=== PATIENT | male | born 1975 | race Caucasian/White ===

== ENCOUNTER 2024-01-29 04:44 | Emergency (ER) | payer OTHER, SELFPAY ==
[2024-01-29 04:52] VITALS: BP 168/118; PULSE 103; RESP 20; TEMP 37.2; O2SAT 97
--- NOTE | 2024-01-29 05:20 | CRLHL7_ITS ---
For Patients: As a result of the Century Cures Act, medical imaging exams and procedure reports are released immediately into your electronic medical record. You may view this report before your referring provider. If you have questions, please contact your health care provider. INDICATION: Lower abdominal pain. History of diverticulitis. COMPARISON: September 09, 2020 TECHNIQUE: CT examination of the abdomen and pelvis was performed following the uneventful intravenous administration of 103 cc of Isovue 370. Thin section axial images were obtained from the lung bases through the pubic symphysis. Oral contrast was not administered. Please note that all CT scans at this facility use dose modulation, iterative reconstruction, and/or weight-based dosing when appropriate to reduce radiation dose to as low as reasonably achievable. FINDINGS: LUNG BASES: The lung bases as visualized appear normal.The heart size is normal at the lung bases. LIVER/BILIARY SYSTEM:The liver is normal in size and configuration. There is no focal mass and there is no intra- or extra hepatic biliary ductal dilatation.Hepatic steatosis. Contracted but otherwise unremarkable appearing gallbladder ADRENALS: Normal KIDNEYS, URETERS and BLADDER:Kidneys and ureters appear normal. Bladder wall thickening which may be due to chronic bladder outlet obstruction or cystitis. Correlate with urinalysis. SPLEEN:Normal appearance. PANCREAS: Appears normal. RETROPERITONEUM and MESENTERY: There is no mass, adenopathy or aortic aneurysm. GASTROINTESTINAL SYSTEM: There is extensive diverticulosis. There are inflammatory changes adjacent to the mid and distal descending colon. These are probably chronic as they were in the location of relatively severe diverticulitis noted September 09, 2020. There are findings of acute diverticulitis of the ascending colon near the hepatic flexure. There is moderate to severe surrounding inflammatory change and a moderate amount of fluid in the right paracolic gutter and extending towards Damico`s pouch. No collection. No free air. There is also thickening of the regional colon which is probably a secondary inflammatory process related to the adjacent diverticulitis rather than an unrelated colitis. PELVIS: No mass, adenopathy or free fluid. OSSEOUS STRUCTURES and ABDOMINAL WALL: There is an age-appropriate appearance of the osseous structures.No significant abdominal wall defect. OTHER: No free fluid or free air. IMPRESSION: 1. There are findings of acute diverticulitis of the ascending colon near the hepatic flexure. The inflammatory changes are moderate to severe. There is a moderate amount of regional fluid including the right paracolic gutter extending towards Morison`s pouch. However, this is uncomplicated in the sense that there is no collection or free air 2. There are inflammatory changes in the mid and distal descending colon. These are probably chronic changes associated with a relatively severe diverticulitis noted in this area in 2020. 3. Colonic wall thickening in the ascending colon and right lateral aspect of the transverse colon a sympathetic response to the adjacent diverticulitis rather than true colitis unrelated to the diverticular disease 4. Other incidental nonacute findings as above Please note that all CT scans at this facility use dose modulation, iterative reconstruction, and/or weight-based dosing when appropriate to reduce radiation dose to as low as reasonably achievable. Dictated by Marcio Oshea MD @ 01/29/2024 6:31:27 AM (Electronically Signed)
--- NOTE | 2024-01-29 05:22 | ED.GENADULT ---
HPI - General Adult General Chief complaint: Abdominal Pain Stated complaint: Diverticulitis Time Seen by Provider: 01/29/24 04:58 Source: patient Mode of arrival: ambulatory Limitations: no limitations History of Present Illness HPI narrative: 48-year-old male with a prior history of diverticulitis presents to the emergency department with lower abdominal pain for the past 5-6 hours accompanied by body aches and feeling of malaise. Reports that he had diverticulitis about 2-3 years ago and it sounds like he was hospitalized up in [facility]. Sounds as though he was able to be treated with IV antibiotics for just a couple of days and then transition to oral antibiotics. Did not require any surgery. He thinks he has had a couple of small minor bouts that have not required antibiotics her medical treatment in the interim, never enough to have made him come to the ED again. He did have a colonoscopy a couple years ago after that initial bout of diverticulitis which showed a couple of small polyps but nothing that was contributing to the etiology of his diverticulitis. Patient states that his symptoms just seem like they are worsening much more quickly than previous episode. No dysuria, bowels have been moving well. No history of bowel obstructions. No prior abdominal surgeries. No GI bleed, upper abdominal pain, nausea or vomiting. Has felt a little feverish but has not measured temperature. Did not try any other interventions prior to coming to ED. Pain is achy and constant in the lower abdomen favoring the right side a little bit but is worse with movement. Does seem to worsen in waves at times. No sick contacts, no pertinent travel. No trauma or injury. He reports a history of hypertension as well but states that he has been off of his medications since he ran out in admits that he needs to get to the pharmacy to pick this up. Blood pressure is normally better controlled on lisinopril. He also reports that he is supposed to take potassium tablets, not currently using that either. He is a nonsmoker but states that he drinks about a case of beer per week, mostly Tuesday and Tuesday. Sees an outside primary care provider. Twelve system review of systems is completed and pertinent only for the GI in generalized symptoms as described above, otherwise negative times 12. Related Data Previous Rx's ?Medication ?Instructions ?Recorded levofloxacin 750 mg tablet 750 mg PO DAILY #10 tabs 01/29/24 metronidazole 500 mg tablet 500 mg PO TID #30 tabs 01/29/24 Allergies Allergy/AdvReac Type Severity Reaction Status Date / Time No Known Drug Allergies [facility]ergy Verified 01/29/24 04:52 [facility] Social History Non-prescribed substance use: denies use Exam Const: Vital Signs, click to edit/add: Vital Signs - 24 hr 01/29/24 04:52 Temperature 98.9 F Pulse Rate [Pulse Oximeter] 103 H Respiratory Rate 20 Blood Pressure [Ri ght Upper Arm] 168/118 H Pulse Oximetry 97 Oxygen Delivery Me thod Room Air Documenting provider has reviewed patient's vital signs: yes Common normals: alert General appearance: well kempt Other: Appears mildly diaphoretic but good historian. Well nourished and well hydrated. No signs of intoxication. HENMT: Common normals: normocephalic and oropharynx normal Head and scalp: normocephalic Face and sinus: normal facial exam Mouth: oral and palatal mucosa normal Throat: posterior oropharynx normal Eye: Common normals: conjunctivae normal General eye: normal appearance of both eyes Conjunctiva: conjunctiva(e) normal Neck & C-Spine: Common normals: no lymphadenopathy Resp: Common normals: normal respiratory effort, no use of accessory muscles and clear to auscultation bilaterally Effort & inspection: able to speak in complete sentences Auscultation: clear to auscultation bilaterally Cardio: Common normals: regular rate, regular rhythm, S1 normal heart sound and S2 normal heart sound Rate: regular rate Rhythm: regular rhythm Heart sounds: S1 normal and S2 normal GI: Other: Abdomen slightly distended with hyperactive bowel sounds. Bowel sounds are present in all 4 quadrants. Tender to palpation throughout but with some guarding down in the suprapubic/right and left lower quadrant areas. Mild rebound tenderness as well. No obvious mass or hernia noted. : Common normals: no CVA tenderness Bladder/kidney exam: no CVA tenderness Back & Pelvis: Common normals: no CVA tenderness Thoracic spine/upper back: normal to inspection Lumbar spine/lower back: normal to inspection Extremity: Common normals: normal to inspection, normal capillary refill and no pedal edema Neuro: Sensorium/orientation: alert Speech: speech normal Motor exam: no movement abnormalities noted Psych: Appearance: well kempt Attitude: engaged Activity/motor behavior: appropriate eye contact Insight: insight good Judgement: judgment good Skin: Common normals: no rashes or lesions noted General skin exam: no rashes or lesions noted Course Course ED Course: 48-year-old male with mild tachycardia and abdominal pain suspicious for diverticulitis. Exam concerning for peritonitis. Differential diagnosis also including appendicitis, gastroenteritis, perforation, pancreatitis, kidney stones, cystitis, obstruction, volvulus, among others. Will place IV, give 1 L of normal saline. Typical labs, CT of the abdomen and pelvis. May require hospitalization. Reevaluation(s) Time of Reevaluation #1: 06:45 Reevaluation #1: Discussed lab and CT findings with patient. CT confirming suspicion for diverticulitis but it is over on the right side at the hepatic flexure area. There are no signs of perforation, free air or abscess. There is a significant amount of inflammation however. No signs of obstruction. Some inflammatory changes in the left colon which are likely related to scarring from prior episodes. Counseled patient on need for antibiotics. I think that we can avoid hospitalization at this time since we are starting early. Will begin level floxacillin and metronidazole. Initial dose here in the ED an additional doses will be sent to pharmacy. Stressed that unfortunately even with early antibiotics, he may still have worsening or complications. Discussed alarm symptoms like high fever, weakness, worsening pain all as indications to come back to ED. He may require surgery to manage this and hospitalization and IV antibiotics may not have been able to prevent that. He is instructed to be off of work for the next 48 hours, soft bland diet with lots of fluids. Tylenol and ibuprofen as needed for pain. Lab findings are consistent with inflammation and mild infection but no obvious sepsis, liver damage, pancreatitis or other abnormality. Patient verbalizes understanding of instructions given, see discharge plan. Vital Signs Vital signs: Initial Vital Signs Temperature 98.9 F 01/29/24 04:52 Temperature Source Temporal Artery Scan 01/29/24 04:52 Pulse Rate 103 H 01/29/24 04:52 Pulse Rhythm Regular 01/29/24 04:52 Pulse Strength 3+ Normal 01/29/24 04:52 Respiratory Rate 20 01/29/24 04:52 Blood Pressure 168/118 H 01/29/24 04:52 Blood Pressure Mean 134 H 01/29/24 04:52 Blood Pressure Position Sitting 01/29/24 04:52 Pulse Oximetry 97 01/29/24 04:52 Oxygen Delivery Method Room Air 01/29/24 04:52 Vital Signs Temperature 98.9 F 01/29/24 04:52 Pulse Rate 103 H 01/29/24 04:52 Respiratory Rate 20 01/29/24 04:52 Blood Pressure 168/118 H 01/29/24 04:52 Pulse Oximetry 97 01/29/24 04:52 Oxygen Delivery Method Room Air 01/29/24 04:52 Temperature 98.9 F 01/29/24 04:52 Pulse Rate 103 H 01/29/24 04:52 Respiratory Rate 20 01/29/24 04:52 Blood Pressure 168/118 H 01/29/24 04:52 Pulse Oximetry 97 01/29/24 04:52 Oxygen Delivery Method Room Air 01/29/24 04:52 Medications Administered Medications: Discontinued Medications Generic Name Dose Route Start Last Admin Trade Name Freq PRN Reason Stop Dose Admin Sodium Chloride 1,000 mls @ 1,000 mls/hr 01/29/24 05:21 01/29/24 05:37 0.9 % Sodium Chloride 1000 Ml IV 01/29/24 06:20 1,000 mls/hr .Q1H LUIS Administration Medical Decision Making Lab Data Lab results reviewed: Yes I reviewed the patient's lab results Lab results narrative: Leukocytosis with moderately elevated CRP. Left shift with neutrophil count of 9. Lipase, liver enzymes looking okay. Labs: Lab Results 01/29/24 Range/Units 05:30 WBC 11.37 H (4.50-11.00) K/uL RBC 4.55 (4.30-5.90) m/uL Hgb 15.3 (13.5-17.5) gm/dL Hct 43.2 (37.0-53.0) % MCV 95 (80-100) fL MCH 34 (26-34) pg MCHC 35 (32-36) gm/dL RDW Coeff of Stephanie 11.7 (11.5-15.5) % Plt Count 77 L (140-440) K/uL Neut % (Auto) 82.3 H (42.0-72.0) % Lymph % (Auto) 6.7 L (20-44) % Baxter % (Auto) 9.9 (0.0-11.0) % Eos % (Auto) 0.7 (0.0-7.0) % Baso % (Auto) 0.2 (0.0-3.0) % Neut # (Auto) 9.40 H (1.7-7.0) K/uL Lymph # (Auto) 0.80 L (0.90-2.90) K/uL Baxter # (Auto) 1.10 H (0.00-0.90) K/UL Eos # (Auto) 0.10 (0.00-0.50) K/uL Baso # (Auto) 0.00 (0.00-0.30) K/uL Abs Immat Gran (auto) 0.00 (0.00-0.30) K/uL Imm/Tot Granulo (auto) 0.2 % Sodium 133 L (135-149) mmol/L Potassium 3.7 (3.6-5.1) mmol/L Chloride 107 (96-114) mmol/L Carbon Dioxide 22 (20-32) mmol/L Anion Gap 4 L (7-15) mEq/L BUN 9 (7-30) mg/dL Creatinine 0.7 (0.5-1.5) mg/dL Estimated GFR 112 ml/min Glucose 137 H (60-115) mg/dL Lactate 0.8 (0.5-1.9) mmol/L Calcium 9.0 (8.4-10.6) mg/dL Total Bilirubin 1.3 (0.1-1.5) mg/dL AST 48 H (12-35) U/L ALT 48 (4-50) U/L Alkaline Phosphatase 86 (40-150) U/L C-Reactive Protein 4.7 H (0.5-1.0) mg/dL Total Protein 7.1 (6.0-8.3) g/dL Albumin 4.1 (3.3-5.0) g/dL Lipase 72 (23-300) U/L Imaging Data CT scan - pelvis: Attestation: I have reviewed the pertinent imaging results. My impression: Lots of inflammation in the right upper quadrant, centering around the hepatic flexure of the colon suspicious for diverticulitis. No obvious free air or abscess Radiologist's impression: IMPRESSION: 1. There are findings of acute diverticulitis of the ascending colon near the hepatic flexure. The inflammatory changes are moderate to severe. There is a moderate amount of regional fluid including the right paracolic gutter extending towards Morison`s pouch. However, this is uncomplicated in the sense that there is no collection or free air 2. There are inflammatory changes in the mid and distal descending colon. These are probably chronic changes associated with a relatively severe diverticulitis noted in this area in 2020. 3. Colonic wall thickening in the ascending colon and right lateral aspect of the transverse colon a sympathetic response to the adjacent diverticulitis rather than true colitis unrelated to the diverticular disease 4. Other incidental nonacute findings as above Discharge Plan Discharge Clinical Impression: Diverticulitis Patient Disposition: Home, Self-Care Condition: Stable Instructions: Diverticulitis (DC) Additional Instructions: As we discussed, we do have a pretty impressive case of diverticulitis today but no signs of abscess, perforation or any markers of sepsis or other very severe infection. I do think that since things otherwise look okay, we can start antibiotics and hopefully keep you out of the hospital. I do predict that there is about a 20% chance that things may worsen and you may need to come back to the hospital. Unfortunately, early hospitalization would not necessarily change the course of illness. There is a chance that this could require surgery if things worsen to drain an abscess or infection. There does not seem to be any signs of those complications today. We have started you on a combination of antibiotics. Level floxacillin will be taken once daily and metronidazole will be taken 3 times daily. You have already had your level flexes in for today. 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 Your next dose will be due at about 3:00 p.m.. It is okay to stop adjust each dose by about an hour or so until you get to a more convenient schedule. I would recommend that you take today and tomorrow off of work. If you become severely weak, are unable to hold down any type of liquid or your pain is dramatically worse, please come back to the emergency department. As we discussed, it is a good idea to use Tylenol and/or ibuprofen to help with the pain so that you are more able to move around and help your body heal. Proper dosing of Tylenol is 1000 mg every 6 hours, ibuprofen is 600 mg every 6 hours. Start with soft, bland foods like soups, lytes am which is, crackers and slowly advanced in a few days once you are feeling better. Remember not to drink any alcohol while on the metronidazole and even for a couple of days after due to the risk of side effects and interaction with alcohol. Activity Level: Activity as Tolerated Discharge Diet: Regular Prescriptions: New levofloxacin 750 mg tablet 750 mg PO DAILY Qty: 10 0RF metronidazole 500 mg tablet 500 mg PO TID Qty: 30 0RF Follow Up/Referrals: Toshia Rehman MD [Primary Care Provider] - Stand Alone Forms: [employer] Info Instructions
[2024-01-29 05:37] LABS: Basophils Percent Auto 0.2 % (0.0-3.0); Eosinophils Percent Auto 0.7 % (0.0-7.0); Hematocrit 43.2 % (37.0-53.0); Hemoglobin* 15.3 gm/dL (13.5-17.5); Immature Granulocytes Pct Auto 0.2 %; Lactate Sepsis w/Reflex* 0.8 mmol/L (0.5-1.9); Lymphocytes Percent Auto 6.7 % (20-44); Mean Corpuscular HGB Conc 35 gm/dL (32-36); Mean Corpuscular Hemoglobin 34 pg (26-34); Mean Corpuscular Volume 95 fL (80-100); Monocytes Percent Auto 9.9 % (0.0-11.0); Neutrophils Percent Auto 82.3 % (42.0-72.0); Platelet Count* 77 K/uL (140-440); RDW Coefficient of Variation % 11.7 % (11.5-15.5); Red Blood Count 4.55 m/uL (4.30-5.90); White Blood Count* 11.37 K/uL (4.50-11.00)
[2024-01-29] MEDS: 0.9 % SODIUM CHLORIDE 1000 ml 1,000 ML IV (05:37)
[2024-01-29 05:38] LABS: Slide Review Reflex No
--- OUTSIDE RECORDS SUMMARY | 2024-01-29 05:38 | XMS_ITS | Continuity of Care Document ---
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 Name Role Phone Terrie Logan MD Unavailable Unavailable Allergies, Adverse Reactions, Alerts Substance Reaction Status Criticality No Known Allergies Active No Inform ation Medications Medication Instructions Dosage Effective Dates (start - stop) Status Comments No Drug Therapy Prescribed Procedures Procedure Date Office Cons New/estab Mod Offic Cons New/estab Mod Advance Directives Directive Yes / No Effective Date File Name No Information Encounters Encounter Description Practice Location Reason(s) For Visit Diagnoses Date Provider Providers Copied on Encounter [facility], [address] [address], [place], [place], [id number], [place] tel:[phone] [facility] No Information 1 Doreen Falcon. [address], [id number], [place]. tel:[phone] Referring Provider: Referral Self, USE FOR SELF REFERRALS. Office Cons New/estab Mod [facility], [address] [address], [place], [place], [id number], [place] tel:[phone] [facility] GI Symptoms or Concerns (chief complaint) DiverticulitisCo pauline cancer screening 1 Doreen Falcon. [address], [id number], [place]. tel:[phone] Referring Provider: Romario Rangel, [address] [facility], [place], [address]. tel:[phone] [facility], [address] [address], [place], [place], [id number], [place] tel:[phone] [facility] No Information 1 Alessandra Rowan. [address] [facility], [place], [place], [id number], [place]. tel:[phone] Offic Cons New/estab Mod [facility], [address] [address], [place], [place], [id number], [place] tel:[phone] [facility] GI Symptoms or Concerns (chief complaint) Alcoholic liver diseaseFatty liverDietary counseling and surveillance 6 No Information Referring Provider: Shanell De Oliveira, [address], [place], [address]. tel:[phone] Family History Family Member Type Diagnosis Age At Onset Problem (finding) No family history of Ca ncer, colon Problem (finding) No family history of Co litis Problem (finding) No family history of Ul cerative colitis Problem (finding) No family history of Ca ncer, rectal Problem (finding) Family history of diverticulitis of colon Problem (finding) No family history of Co pauline polyps Immunizations Vaccine Date Status Comments tetanus toxoid, reduced diphtheria toxoid, and acellular pertussis vaccine, adsorbed administered Note: [facility] b i-directional interface ; Source: Other Registry Havrix administered Note: [facility] bi-d irectional interface ; Source: Other Registry Havrix administered Note: [facility] bi-d irectional interface ; Source: Other Registry tetanus and diphtheria toxoi ds, adsorbed, preservative free, for adult use (2 Lf of tetanus toxoid and 2 Lf of diphtheria toxoid) administered Note: [facility] bi-direct ional interface ; Source: Other Registry varicella virus vaccine administered Note : [facility] bi-directional interface ; Source: Other Registry measles, mumps and rubella v irus vaccine administered Note: [facility] bi-direct ional interface ; Source: Other Registry measles and rubella virus vaccine administered Note: [facility] bi-direct ional interface ; Source: Other Registry diphtheria and tetanus toxoi ds, adsorbed for pediatric use administered Note: [facility] bi -directional interface ; Source: Other Registry Payers Payer name Insurance type Covered democrat ID Authoriza tion(s) No Information Social History Type Description Quantity Date Captured Comments Alcohol Use Details Unknown Caffeine Use Details Unknown Tobacco Use Status No Information Smoking Status Never smoker Sex Male Vital Signs Date / Time: Height Weight BMI Pulse Rate Blood Pressure Temperature Respiratory Rate Body Surface Area Head Circumference Head Circ. Percentile Wt./Pedro. Percentile BMI percentile Pulse Ox Inhaled Ox 71.00 in 87.070 kg (192.00 lbs) 26.8 0 kg/m eter (2) 88 /min 195/130 mm[Hg] 0.00 F 14 /min 97 % Chief Complaint And Reason For Visit No Information Reason For Referral Reason For Referral No Information Plan Of Treatment Date Type Action Status Goal Lifestyle education regardin g diet completed Referral Ordered: Colonoscopy Appointment date/timeframe: 12/29/2020 ordered Referral Ordered: CBC Appointment date/timeframe: 10/07/2015 ordered Referral Ordered: [id number] Phenotype Appointment date/timeframe: 10/07/2015 ordered Referral Ordered: Hepatic Function Panel Appointment date/timeframe: 10/07/2015 ordered Referral Ordered: [id number], Serum Appointment date/timeframe: 10/07/2015 ordered History Of Present Illness Encounter Date Complaint History Of Prese nt Illness GI Symptoms or Concerns The last ent is a pleasant 44-year-old gentleman we were asked to see by his primary care physician, Romario Kennedy for a history of diverticulitis.The patient history is on September 09, he developed bloating and worsening abdominal pain and he presented to the ER soon after that when his pain just became progressively worse. CT at that time showed diverticulitis and he was placed on Cipro and Flagyl. His pain did not improve actually worsened over the next 4 days and he was seen at [facility] on September 15. At that time, the CT showed evidence of a possible perforation with an abscess and consistent with his diverticulitis and he had elevated white blood cell count. He was hospitalized for 3 days and placed on IV antibiotics.A repeat CT on 09/18/2020 showed persistent diverticulitis, but significantly improved from the CT 3 days ago. His diet was advanced and he was discharged home on Augmentin. Augmentin was initially for 14 days, but the patient had a recurrence of symptoms GI Symptoms or Concerns This pat ient comes into the clinic for evaluation of abnormal liver tests. 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 He will have a difficult time getting adequate sleep. Evaluation at his primary clinic for hypertension and a question whether it is related to these irregular sleep habits. He also had a concern about exposure to benzene at workup. The patient has had abnormal liver tests since 2012. In July 2012, the ALT was 67 and AST 52. The rest of his liver tests were normal. They had been repeated more recently including July 03, 2015. Those results include AST 106, ALT 104, alkaline phosphatase 66, total bilirubin 1.2 and albumin 4.3. His platelet count was 96,000 and white blood count 4200. In May 2015, his lipids included cholesterol 223, triglycerides 275, HDL 50 and LDL 118. His a medical problem list from his primary clinic includes elevated fasting glucose. The patient had darling Functional Status Date Functional Assessmen t No Information Medications Administered Medication Instructions Dosage Effective Dates (start - stop) Status Comments No Drug Therapy Prescribed Instructions Date Instruction Additional Infor tete Lifestyle education regarding di et Related to Dietary counseling and surveillance Assessments Type Assessment Date No Information Patient Care Teams Name Effective Dates (start - stop) Status Members No Information
--- OUTSIDE RECORDS SUMMARY | 2024-01-29 05:38 | XMS_ITS | Clinical Summary ---
Author Organization [employer] [facility] [employer] Address [place], [place] [address] Care Team Providers Care Financial Systems Manager Name Role Phone Toshia Rehman MD Primary Care Provider Allergies No known active allergies Medications Medication Sig Dispensed Refills Start Date End Date Status multivitamins with minerals (MEN'S ONE DAILY) tablet Take 1 Tablet by mouth once daily. 0 01/08/2010 Active Calcium-Cholecalcifero l, D3, (CALCIUM 500 + D, D3,) 500-125 mg-unit Tab Take 1 Tablet by mouth once daily. 0 01/08/2010 Active omega-3 fatty acids-vitamin E (FISH OIL) 1,000 mg Cap Take 1 Capsule by mouth once daily. 0 01/08/2010 Active ibuprofen/diphenhydram ine cit (ADVIL PM ORAL) Take 2 Capsules by mouth at bedtime if needed. Active ibuprofen (ADVIL; MOTRIN) 600 mg tabletIndications:Acut e diverticulitis Take 1 Tablet (600 mg) by mouth every 6 hours if needed for Pain. Maximum of 3200 mg in 24 hours. 24 Tablet 07/22/2022 Active potassium chloride (KLOR-CON M20) 20 mEq extended-release tablet (part/cryst)Indication s:Hypertension, unspecified type,Hypokalemia Take 1 Tablet (20 mEq) by mouth once daily with a meal. 100 Tablet 3 07/06/2023 Active traZODone (DESYREL) 100 mg tabletIndications:Inso mnia, idiopathic Take 1 Tablet (100 mg) by mouth at bedtime if needed for Sleep. 100 Tablet 3 07/06/2023 Active lisinopril-hydrochloro thiazide, 20-25 mg, (PRINZIDE, ZESTORETIC) 20-25 mg per tabletIndications:Hype rtension, unspecified type Take 1 Tablet by mouth once daily. 30 Tablet 07/06/2023 Active Active Problems Problem Noted Date Diagnosed Date Colon polyp 05/12/2022 Overview: Colonoscopy 05/2022 TA, repeat in 7 years Alcoholic liver damage 01/27/2022 Diverticulitis of intestine with perforation and abscess 09/15/2020 Overview: Saw Gastrointestinal October 2020. Hypertension 08/23/2017 Elevated liver enzymes 08/02/2012 Overview: Jul 2012. Elevated fasting glucose 01/17/2010 Overview: January 2010: glucose 101. Should recheck in 6-12 months. Normal on recheck Jul 2012. Resolved Problems Problem Noted Date Diagnosed Date Resolved Date Elevated blood pressure read ing without diagnosis of hypertension 01/08/2010 08/23/2017 Overview: January 2010: 158/78. Encounters Date Type Department Care Team Description 11/04/2023 Patient Outreach [facility] [address] [place] [address] Kristen Luna, RN Blood Pressure from Last 3 Months Immunizations Name Administration Dates Next Due DT (Age < 7 years) 11/30/1988 Hepatitis A (Adult) 01/14/2009,07/31/2008 MMR 05/16/1989 Measles-Rubella 11/30/1988 Td (Age >=7 Years) 10/02/2002 Tdap 03/05/2021,01/16/2010 Varicella Vaccine 10/02/2002 Family History Medical History Relation Name Comments Heart Disease Father , d ied 63 Other Father AV replacement. Stroke Father 57 years old Other Mother liver failrue, substance abuse. Other Other cancer on mom's side Relation Name Status Comments Father Mother Other Social History Tobacco Use Types Packs/Day Years Used Date Smoking Tobacco: Never Smokeless Tobacco: Never Alcohol Use Standard Drinks/Week Comments Yes 0 (1 standard drink = 0.6 oz pur e alcohol) case per week PHQ-2 Answer Date Recorded PHQ-2 TOTAL SCORE 0 07/06/2023 Social Connections Answer Date Recorded Frequency of Communication with Friends and Fami ly Not on file 08/04/2023 Financial Resource Strain Answer Date R ecorded Difficulty of Paying Living Expenses 3 07/27/2022 Difficulty of Paying Living Expenses Not on file 07/27/2022 Food Insecurity Answer Date Recorded Worried About Running Out of Food in the Last Ye ar 1 07/27/2022 Transportation Needs Answer Date Record ed Lack of Transportation (Medical) 1 07/27/2022 Housing Stability Answer Date Recorded Unable to Pay for Housing in the Last Year 1 07/27/2022 Sex and Gender Information Value Date Recorded Sex Assigned at Not on file Gender Identity Not on file Sexual Orientation Not on file Obstetrics History Last Filed Vital Signs Vital Sign Reading Time Taken Comments Blood Pressure 142/90 07/06/2023 4:16 PM AUDIO VISUAL FACILITIES ENGINEER Pulse 73 07/06/2023 3:59 PM AUDIO VISUAL FACILITIES ENGINEER Temperature 36.8 ??C (98.2 ??F) 07/22/2022 6:15 AM CS T Respiratory Rate 16 07/22/2022 6:15 AM AUDIO VISUAL FACILITIES ENGINEER Oxygen Saturation 99% 07/06/2023 3:59 PM AUDIO VISUAL FACILITIES ENGINEER Inhaled Oxygen Concentration - - Weight 95.8 kg (211 lb 3.2 oz) 07/06/2023 3:59 P M AUDIO VISUAL FACILITIES ENGINEER Height 180.3 cm (5' 10.98) 07/06/2023 3:[address] Body Mass Index 29.47 07/06/2023 3:59 PM AUDIO VISUAL FACILITIES ENGINEER Plan of Treatment Health Maintenance Due Date Last Done Comments HIV for age 15-65 1988 COVID-19 vaccine series ( season) 2023 Zoster (shingles) series for age 50+ (1 of 2) 12/12/2023 Influenza for age 50-64 03/04/2024 BMI (ht and wt on same day) for age 18+ 07/06/2024 07/06/2023, 07/27/2022, 01/27/2022, Additional history exists Depression screening for age 12+ 07/06/2024 07/06/2023, 01/27/2022, 09/15/2020, Additional history exists Lipids for age 45-75 01/01/2026 01/01/2021, 05/21/2015, 01/16/2010, Additional history exists Tetanus booster 03/05/2031 03/05/2021, 01/01, 10/02/2002 Colonoscopy through age 75 05/11/2032 05/11/2022, Hepatitis C screening for age 18-79 Completed 07/03/2015 Tdap Completed 03/05/2021, 01/16/2010 Pneumococcal series for age 6-64 Aged Out No longer eligible based on patient's age to complete this topic Procedures Procedure Name Priority Date/Time Associated Diagnosis Comments COLONOSCOPY SCREENING Routine 05/11/2022 10:59 AM AUDIO VISUAL FACILITIES ENGINEER Diverticulitis Screen for colon cancer LIPID PANEL W REFLEX MEASURED LDL Routine 01/01/2021 7:57 AM CDT Hypertension ANTI HCV Routine 07/03/2015 9:23 AM AUDIO VISUAL FACILITIES ENGINEER Elevated liver enzymes from Last 3 Months or Most Recently Relevant to Health Maintenance Results * COLONOSCOPY (05/11/2022 11:08 AM AUDIO VISUAL FACILITIES ENGINEER) 05/11/2022 11:0 8 AM AUDIO VISUAL FACILITIES ENGINEER Narrative Transcriptions Rodney Corrigan MD - 05/11/2022 12:10 PM CST Patient Name: Michael Stevens Procedure Date: 05/11/2022 Gender: Male Date of : 1975 Admit Type: Outpatient Procedure: Colonoscopy Proceduralist: Rodney Corrigan MD , Deisy Peterson, RN (Nurse), Haydee Medina, BEENA (Nurse) Referring MD: Toshia Rehman Indications/Pre-Op Diagnosis: Screening for colorectal malignant neoplasm, This is the patient's first colonoscopy Medications: Fentanyl 100 micrograms IV, Midazolam 4 mgIV, The level of sedation administered wasmoderate Procedure Description: The patient had risks, benefits and alternatives explained to andgave informed consent. The patient had a stable cardiopulmonary status and judged an adequate candidate for conscious sedation. The endoscope [id number] was passed through the anus andadvanced to the cecum, identified by appendiceal orifice and ileocecal valve.The colonoscopy was performed without difficulty. The patient toleratedthe procedure well. The quality of the bowel preparation was good. The ileocecal valve, appendiceal orifice, and rectum were photographed. Complications: No immediate complications. Estimated Blood Loss & Specimen: Estimated blood loss: none. Specimen collected - Yes and sent to Laboratory Findings: The perianal and digital rectal examinations were normal. A 3 mm polyp was found in the ascending colon. The polyp was sessile. The polyp was removed with a cold biopsy forceps. Resection and retrieval were complete. A 4 mm polyp was found in the descending colon. The polyp wassessile. The polyp was removed with a cold snare. Resection and retrieval were complete. Scattered small and large-mouthed diverticula were found in theentire colon. The exam was otherwise without abnormality. Impressions/Post-Op Diagnosis: - One 3 mm polyp in the ascending colon, removed with a cold biopsy forceps. Resected and retrieved. - One 4 mm polyp in the descending colon, removed with a cold snare. Resected and retrieved. - Mild diverticulosis in the entire examined colon. - The examination was otherwise normal. Recommendation: - Patient has a contact number available for emergencies. The signsand symptoms of potential delayed complications were discussed with the patient. Return to normal activities tomorrow. Written discharge instructions were provided to the patient. - Resume previous diet. - Continue present medications. - Repeat colonoscopy is recommended. The colonoscopy date will be determined after pathology results from today's exam become available for review. Moderate Sedation: A time out was performed before the procedure. Moderate (conscious) sedation was administered by the endoscopy nurse and supervised bythe endoscopist. The following parameters were monitored: oxygensaturation, heart rate, blood pressure, EKG, CO2, respiratory rate, adequacy of pulmonary ventilation and reponse to care. Please refer to the patient's medical record flowsheets and nursing notes for moderate sedation details. Total physician intraservice time was 16 minutes. Rodney Corrigan MD 05/11/2022 12:10:31 PM This report has been signed electronically. Note Initiated On: 05/11/2022 11:08 AM Procedure Code(s): --- Professional --- 70011, Colonoscopy, flexible; with removalof tumor(s), polyp(s), or other lesion(s) bysnare technique 00123, 59, Colonoscopy, flexible; withbiopsy, single or multiple Diagnosis Code(s): --- Professional --- Z12.11, Encounter for screening formalignant neoplasm of colon D12.2, Benign neoplasm of ascending colon D12.4, Benign neoplasm of descending colon K57.30, Diverticulosis of large intestine without perforation or abscess withoutbleeding CPT copyright 2020 [employer] [place] [employer]. All rights reserved. The codes documented in this report are preliminary and upon human resources director reviewmay be revised to meet current compliance requirements. Scope In: 11:48:42 AM Scope Withdrawal Time 0 hours 9 minutes 55 seconds Scope Out: 12:02:41 PM Rodney Corrigan MD PROCEDURE ORD * (ABNORMAL) LIPID PANEL W REFLEX MEASURED LDL (01/01/2021 7:57 AM CDT) Pathologist [facility] CHOLESTEROL,TOTAL 164 100 - 199 mg/dL 01/01/2021 5:17 PM CDT [facility] TRIGLYCERIDES 191(H) <150 mg/dL 01/01/2021 5:17 PM CDT [facility] HDL CHOLESTEROL 52 >40 mg/dL 5:17 PM CDT [facility] NON-HDL CHOLESTEROL 112 <145 mg/dl 01/01/2021 5:17 PM CDT [facility] CHOL/HDL RATIO 3.15 <4.50 01/01/2021 5:17 PM CDT [facility] LDL CHOLESTEROL 74 <=130 mg/dL 01/01/2021 5:17 PM CDT [facility] VLDL CHOLESTEROL 38 mg/dL 01/02/20 5:17 PM CDT [facility] PROVIDER ORDERED STATUS RANDOM 01/01/2021 5:17 PM CDT [facility] Blood BLOOD SPECIMEN / Unknown Venipuncture / Unknown 01/01/2021 7:57 AM CDT 01/01/2021 7:57 AM CDT Toshia Rehman MD [facility] [address] [place] [address], [place] * ANTI HCV (07/03/2015 9:23 AM AUDIO VISUAL FACILITIES ENGINEER) HEPATITIS C ANTIBODY Non-Reacti ve Non-Reacti ve 07/03/2015 4:15 PM AUDIO VISUAL FACILITIES ENGINEER [facility] Blood specimen (specimen) BLOOD SPECIMEN / Unknown Venipuncture / Unknown 07/03/2015 9:23 AM AUDIO VISUAL FACILITIES ENGINEER 07/03/2015 9:23 AM AUDIO VISUAL FACILITIES ENGINEER Narrative [facility] - 07/03/2015 4:15 PM AUDIO VISUAL FACILITIES ENGINEER Antibodies to HCV not detected; does not exclude the possibility of exposure to HCV. Shanell Echavarria MD SEND OUTS [facility] [address] [place] [id number], [place] from Last 3 Months or Most Recently Relevant to Health Maintenance Advance Directives * Full Code (Latest Code Status on File) Date Activated Date Inactivated Comments 09/15/2020 9:11 PM 09/18/2020 4:12 PM Question Answer Comments Code Status Discussion: Discussed Care Teams Financial Systems Manager Relationship Specialty [place] [address] [place] [address] PCP - General Family Practice 01/27/22
--- OUTSIDE RECORDS SUMMARY | 2024-01-29 05:39 | XMS_ITS | Continuity of Care Document ---
Author Organization [facility] Address [address] [address] [place] [address] Phone Care Team Providers Care Leach Runner Name Role Phone Terrie Logan MD Unavailable [...] Diagnoses Date Provider Providers Copied on Encounter [facility], [address] [address], [place], [place], [id number], [place] tel:[phone] [facility] No Information 1 Doreen Falcon. [address], [id number], [place]. tel:[phone] Referring Provider: Referral Self, USE FOR SELF REFERRALS. Office Cons New/estab Mod [facility], [address] [address], [place], [place], [id number], [place] tel:[phone] [facility] Symptoms or Concerns (chief complaint) DiverticulitisCo pauline cancer screening 1 Doreen Falcon. [address], [id number], [place]. tel:[phone] Referring Provider: Romario Rangel, [address] [facility], [place], [address]. tel:[phone] [facility], [address] [address], [place], [id number], [place] tel:[phone] [facility] No Information 1 Alessandra Rowan. [address] [facility], [place], [place], [id number], [place]. tel:[phone] Offic Cons New/estab Mod [facility], [address] [address], [place], [id number], [place] tel:[phone] [facility] GI Symptoms or Concerns (chief complaint) Alcoholic liver diseaseFatty liverDietary counseling and surveillance 6 No Information Referring Provider: Shanell De Oliveira, [address], [place], [address]. tel:[phone] Family History Family Member Type Diagnosis Age [...] CBC Appointment date/timeframe: 10/07/2015 ordered Referral Ordered: [id number] Phenotype Appointment date/timeframe: 10/07/2015 ordered Referral Ordered: Hepatic Function Panel Appointment date/timeframe: 10/07/2015 ordered Referral Ordered: [id number], Serum Appointment date/timeframe: 10/07/2015 ordered History Of [...] 4 days and he was seen at [facility] on September 15. At that time, [...]
[2024-01-29 05:59] LABS: Albumin* 4.1 g/dL (3.3-5.0); Chloride* 107 mmol/L (96-114); Sodium* 133 mmol/L (135-149)
[2024-01-29 06:00] LABS: Potassium* 3.7 mmol/L (3.6-5.1)
[2024-01-29 06:02] LABS: Creatinine* 0.7 mg/dL (0.5-1.5); Estimated Glomerular Filt Rate 112 ml/min
[2024-01-29 06:03] LABS: Alanine Aminotransferase* 48 U/L (4-50); Alkaline Phosphatase* 86 U/L (40-150); Anion Gap 4 mEq/L (7-15); Aspartate Amino Transferase* 48 U/L (12-35); Bilirubin Total* 1.3 mg/dL (0.1-1.5); Blood Urea Nitrogen* 9 mg/dL (7-30); Carbon Dioxide* 22 mmol/L (20-32); Glucose* 137 mg/dL (60-115); Lipase* 72 U/L (23-300); Total Protein* 7.1 g/dL (6.0-8.3)
[2024-01-29 06:06] LABS: C Reactive Protein* 4.7 mg/dL (0.5-1.0)
[2024-01-29] MEDS: metroNIDAZOLE 500 MG TABLET PO (06:46)
[2024-01-29] MEDS: levoFLOXacin 750 MG TABLET PO (06:46)
== END 2024-01-29 07:12 | disposition home or self-care (01) ==
PROVIDERS: Emergency Provider Family Medicine; PCP Family Medicine
DX: K57.92 Diverticulitis of intestine, part unspecified, without perforation or abscess without bleeding (principal)
CPT/HCPCS: 36415; 74177; 80053; 81003; 83605; 83690; 85025; 86140; 96374; 99284; 99285; A9270; J7030; Q9967

== ENCOUNTER 2025-02-20 11:01 | Outpatient (CLI) | payer OTHER, SELFPAY | END 2025-02-20 11:02 | disposition home or self-care (01) | LOC: NFLDREF 02-25 18:37 | PROVIDERS: PCP Family Medicine; Referring Provider Family Medicine; Visit Provider Family Medicine | DX: M10.9 Gout, unspecified (principal); I10 Essential (primary) hypertension; Z13.1 Encounter for screening for diabetes mellitus; Z12.5 Encounter for screening for malignant neoplasm of prostate; Z87.19 Personal history of other diseases of the digestive system; Z13.6 Encounter for screening for cardiovascular disorders | CPT/HCPCS: 80053; 80061; G0103 ==